=== PATIENT | male | born 1955 | race Caucasian/White ===

== ENCOUNTER 2018-01-16 13:29 | Outpatient (REF) | payer OTHER, SELFPAY ==
[2018-01-16 21:19] LABS: Iron 81 ug/dL (50-175); Total Iron Binding Capacity 388 ug/dL (250-450); Transferrin Sat 21 % (20-55)
[2018-01-16 21:38] LABS: Cholesterol 229 mg/dL (50-200); Ferritin 33 ng/mL (8-388); HDL Cholesterol 48 mg/dL (40-60); LDL CHOLESTEROL 158 mg/dL (<100); Triglyceride 203 mg/dL (30-150)
[2018-01-16 22:03] LABS: Uric Acid 7.3 mg/dL (3.5-7.2)
== END 2018-01-16 13:49 ==
LOC: NCHCN 13:29
PROVIDERS: PCP Internal Medicine; Visit Provider Internal Medicine
DX: E66.9 Obesity, unspecified (principal); E11.9 Type 2 diabetes mellitus without complications
CPT/HCPCS: 80061; 83721; 82728; 83540; 83550; 84550

== ENCOUNTER 2018-08-25 10:56 | Outpatient (REF) | payer OTHER, SELFPAY ==
[2018-08-25 19:05] LABS: HCT 45.7 % (40.0-50.0); HGB 15.1 g/dL (13.5-17.5)
[2018-08-25 19:53] LABS: Ferritin 97 ng/mL (8-388); Vitamin B12 770 pg/mL (193-986)
== END 2018-08-25 11:16 ==
LOC: NCHCN 10:56
PROVIDERS: PCP Internal Medicine; Visit Provider Internal Medicine
DX: D50.9 Iron deficiency anemia, unspecified (principal); G60.9 Hereditary and idiopathic neuropathy, unspecified
CPT/HCPCS: 82607; 82728; 85014; 85018

== ENCOUNTER 2020-04-09 16:59 | Outpatient (REF) | payer OTHER, SELFPAY ==
[2020-04-09 22:05] LABS: Abs Immature Grans 0.06 10^3/uL (0.0-0.06); Absolute Basophil Count 0.04 10^3/uL (0.0-0.2); Absolute Eosinophil Count 0.14 10^3/uL (0.0-0.7); Absolute Lymphocyte Count 2.09 10^3/uL (1.2-3.4); Absolute Monocyte Count 1.01 10^3/uL (0.1-0.8); Absolute Neutrophil Count 6.92 10^3/uL (1.2-6.7); Basophils % 0.4; Eosinophils % 1.4; HCT 50.2 % (40.0-50.0); HGB 16.4 g/dL (13.5-17.5); Immature Grans % 0.6; Lymphocytes % 20.4; MCH 30.5 pg (27.0-33.0); MCHC 32.7 % (32.0-36.0); MCV 93.5 fL (80-95); MPV 10.3 fL (8.0-11.0); Monocytes % 9.8; Neutrophils % 67.4; Nucleated RBC 0 %; Platelet Count 261 10^3/uL (130-400); RBC 5.37 10^6/uL (4.36-5.78); RDW 12.6 % (11.8-14.1); RDW-SD 42.9 fL; WBC 10.26 10^3/uL (4.4-10.8)
[2020-04-09 22:32] LABS: Ferritin 58 ng/mL (26-388)
== END 2020-04-09 17:19 ==
LOC: NCHCN 16:59
PROVIDERS: PCP Internal Medicine; Visit Provider Internal Medicine
DX: E11.9 Type 2 diabetes mellitus without complications (principal); D50.9 Iron deficiency anemia, unspecified; I10 Essential (primary) hypertension; R53.83 Other fatigue; G25.81 Restless legs syndrome; E66.9 Obesity, unspecified
CPT/HCPCS: 82728; 85025

== ENCOUNTER 2021-09-16 19:07 | Outpatient (REF) | payer MEDICARE, SELFPAY ==
[2021-09-16 21:56] LABS: COMMENT (LAB VIEW ONLY) 73.59 mg/dL; Microalb ug/mg Crea 8.7 ug/mg Cr
== END 2021-09-16 19:08 | disposition home or self-care (01) ==
LOC: NCHCN 19:07
PROVIDERS: PCP Internal Medicine; Visit Provider Nurse Practitioner Family
DX: E11.9 Type 2 diabetes mellitus without complications (principal)
CPT/HCPCS: 82043; 82570

== ENCOUNTER 2021-12-01 15:52 | Outpatient (REF) | payer MEDICARE, SELFPAY ==
[2021-12-01 20:53] LABS: Hemoglobin A1C 6.5 % (<5.7)
[2021-12-01 20:58] LABS: Calculated LDL 106 mg/dL (<100); Cholesterol 219 mg/dL (<200); HDL Cholesterol 49 mg/dL (40-60); Triglyceride 322 mg/dL (<150)
== END 2021-12-01 15:53 | disposition home or self-care (01) ==
LOC: NCHCN 15:52
PROVIDERS: PCP Internal Medicine; Visit Provider Nurse Practitioner Family
DX: E78.5 Hyperlipidemia, unspecified (principal); E11.9 Type 2 diabetes mellitus without complications
CPT/HCPCS: 80061; 83036

== ENCOUNTER 2022-08-19 12:39 | Outpatient (REF) | payer MEDICARE, SELFPAY ==
[2022-08-19 15:42] LABS: Microalb ug/mg Crea 10.8 ug/mg Cr
== END 2022-08-19 12:40 | disposition home or self-care (01) ==
LOC: NCHCN 12:39
PROVIDERS: PCP Internal Medicine; Visit Provider Nurse Practitioner Family
DX: E11.9 Type 2 diabetes mellitus without complications (principal)
CPT/HCPCS: 82043; 82570

== ENCOUNTER 2022-12-23 20:44 | Outpatient (REF) | payer MEDICARE, SELFPAY ==
[2022-12-23 21:09] LABS: Anion Gap 8.4 mmol/L (3-11); BUN 17 mg/dL (7-18); CO2 29.6 mmol/L (21.0-32.0); CREATININE 0.7 mg/dL (0.70-1.30); Chloride 101 mmol/L (98-107); Estimated GFR 99.74 (mL/min/1.73m2); Glucose 101 mg/dL (74-106); Potassium 3.2 mmol/L (3.5-5.1); Sodium 139 mmol/L (136-145)
== END 2022-12-23 20:45 | disposition home or self-care (01) ==
LOC: NCHCN 20:44
PROVIDERS: PCP Internal Medicine; Visit Provider Internal Medicine
DX: I10 Essential (primary) hypertension (principal)
CPT/HCPCS: 80048

== ENCOUNTER 2023-09-13 17:46 | Outpatient (REF) | payer MEDICARE, SELFPAY ==
[2023-09-13 21:46] LABS: COMMENT (LAB VIEW ONLY) 42.35 mg/dL; Microalb ug/mg Crea 7.1 ug/mg Cr
== END 2023-09-13 17:47 | disposition home or self-care (01) ==
LOC: NCHCN 17:46
PROVIDERS: PCP Internal Medicine; Visit Provider Nurse Practitioner Family
DX: E11.9 Type 2 diabetes mellitus without complications (principal)
CPT/HCPCS: 82043; 82570

== ENCOUNTER 2023-11-16 19:37 | Outpatient (REF) | payer MEDICARE, SELFPAY ==
[2023-11-16 21:42] LABS: ALT 26 U/L (16-63); AST 25 U/L (15-37); Albumin 3.8 g/dL (3.4-5.0); Alkaline Phosphatase 66 U/L (46-116); Anion Gap 12.1 mmol/L (3-11); BUN 24 mg/dL (7-18); Bilirubin, Total 1.06 mg/dL (0.2-1.0); CO2 27.9 mmol/L (21.0-32.0); CREATININE 0.8 mg/dL (0.70-1.30); Calculated LDL 80 mg/dL (<100); Chloride 102 mmol/L (98-107); Cholesterol 201 mg/dL (<200); Glucose 103 mg/dL (74-106); HDL Cholesterol 67 mg/dL (40-60); Potassium 3.5 mmol/L (3.5-5.1); Sodium 142 mmol/L (136-145); Total Protein 7.2 g/dL (6.4-8.2); Triglyceride 271 mg/dL (<150)
[2023-11-17 19:24] LABS: PSA, Screening 3.9 ng/mL (<=4.5)
== END 2023-11-16 19:38 | disposition home or self-care (01) ==
LOC: NCHCN 19:37
PROVIDERS: PCP Internal Medicine; Visit Provider Internal Medicine
DX: E78.5 Hyperlipidemia, unspecified (principal); R97.20 Elevated prostate specific antigen [PSA]
CPT/HCPCS: 80053; 80061; 84153

== ENCOUNTER 2023-12-06 15:35 | Outpatient (REF) | payer MEDICARE, SELFPAY ==
[2023-12-06 16:06] LABS: COMMENT (LAB VIEW ONLY) 43.11 mg/dL; Microalb ug/mg Crea 16.2 ug/mg Cr
== END 2023-12-06 15:36 | disposition home or self-care (01) ==
LOC: NCHCN 15:35
PROVIDERS: PCP Internal Medicine; Visit Provider Nurse Practitioner Family
DX: E11.9 Type 2 diabetes mellitus without complications (principal)
CPT/HCPCS: 82043; 82570

== ENCOUNTER 2024-12-17 11:38 | Outpatient (REF) | payer MEDICARE, SELFPAY ==
[2024-12-17 15:37] LABS: COMMENT (LAB VIEW ONLY) 57.47 mg/dL; Microalb ug/mg Crea 4.2 ug/mg Cr
== END 2024-12-17 11:39 | disposition home or self-care (01) ==
LOC: NCHCN 11:38
PROVIDERS: PCP Internal Medicine; Visit Provider Nurse Practitioner Family
DX: I10 Essential (primary) hypertension (principal)
CPT/HCPCS: 82043; 82570